=== PATIENT | female | born 1950 | race American Indian/Alaskan Native ===

== ENCOUNTER 2020-01-31 13:50 | Emergency (ER) | payer MEDICARE ==
--- NOTE | 2020-01-31 15:05 | Emergency Department Report ---
HPI - General Chief Complaint: Abdominal Pain Time Seen by Provider: 01/31/20 14:49 - HPI HPI: 69-year-old female presents to the emergency department with a complaint of a 2- day history of lower abdominal pain, worse in the left lower quadrant. She kandy es any fever, nausea, vomiting, dysuria but does say that she has some recent constipation. Her last bowel movement was 2 days ago. Patient is on chronic pain medication including oxycodone and methadone. She says that she has concerned as she has a history of a "intestinal blockage" in the past. She also has a past medical history of arthritis, CHF, COPD, hypertension, PE and seizures. She has a history of previous gastric bypass, hysterectomy and intestinal blockage repair. ED Past Medical Hx - Past Medical History Previous Medical History?: Yes Hx Hypertension: Yes Hx Congestive Heart Failure: Yes Hx Pulmonary Embolism: Yes Hx Arthritis: Yes Hx Seizures: Yes Hx COPD: Yes Additional medical history: BACK FX SCLEROSIS, DDD, Bowel obstruction - Surgical History Past Surgical History?: Yes Additional Surgical History: intestinal blockage repair, gastric bypass, cervial fusion (c3-c4), Hysterectomy - Social History Smoking Status: Former Smoker Substance Use Type: None - Medications Home Medications: Home Medications Medication Instructions Recorded Confirmed Last Taken Type Methylnaltrexone (Nf) [Relistor 12 mg SQ QDAY #10 vial 01/31/20 Unknown Rx (Nf)] Na Biphos/Na Phosp [Fleet] 1 ml NC ONCE PRN #1 bottle 01/31/20 Unknown Rx Oxycodone HCl/Acetaminophen 1 each PO Q8H PRN #8 tablet 01/31/20 Unknown Rx [Percocet 10/325 mg] ED Review of Systems ROS: Stated complaint: ABD PAIN Other details as noted in HPI Comment: All other systems reviewed and negative Constitutional: denies: chills, fever Eyes: denies: eye pain, vision change ENT: denies: ear pain, throat pain Respiratory: denies: cough, shortness of breath Cardiovascular: denies: chest pain, palpitations Gastrointestinal: abdominal pain, constipation. denies: vomiting Genitourinary: denies: dysuria, discharge Musculoskeletal: denies: back pain, arthralgia Skin: denies: rash, lesions Neurological: denies: headache, weakness Physical Exam - Physical Exam Vital Signs: Vital Signs 01/31/20 01/31/20 14:33 14:55 Temperature 98.2 F Pulse Rate 93 H Respiratory 20 Rate Blood Pressure 141/89 O2 Sat by Pulse 98 97 Oximetry Physical Exam: GENERAL: The patient is well-developed well-nourished. HENT: Normocephalic. Atraumatic. Patient has moist mucous membranes. EYES: Extraocular motions are intact. NECK: Supple. Trachea is midline. CHEST/LUNGS: Clear to auscultation. There is no respiratory distress noted. HEART/CARDIOVASCULAR: Regular. There is no tachycardia. There is no murmur. ABDOMEN: Abdomen is soft. There is some generalized abdominal discomfort with lower greater than upper. No guarding. Patient has normal bowel sounds. SKIN: Skin is warm and dry. NEURO: The patient is awake, alert, and oriented. The patient is cooperative. The patient has no focal neurologic deficits. Normal speech. MUSCULOSKELETAL: There is no tenderness or deformity. There is no evidence of acute injury. ED Course Vital Signs 01/31/20 01/31/20 14:33 14:55 Temperature 98.2 F Pulse Rate 93 H Respiratory 20 Rate Blood Pressure 141/89 O2 Sat by Pulse 98 97 Oximetry - Consultations Consultation #1: 01/31/20 19:51 I spoke with the general surgeon on-call, Dr. Joy, regarding the CT findings of chronic ileus. Since the patient does not have any vomiting, any rigid or severely distended abdomen, and since the patient is able to pass some gas recently, he agrees with the plan for discharge and outpatient follow-up. He agrees with the Relistor but also recommends adding MiraLAX. He also recommended 1 dose of a Fleet enema for home. Lastly he recommended the patient be given some GI follow-up as they might be able to provide the patient with a bowel regiment to assist with her chronic constipation. ED Medical Decision Making - Lab Data Result diagrams: 01/31/20 15:18 01/31/20 15:18 - Radiology Data Radiology results: report reviewed ABDOMEN 3 VIEW(S) INDICATION / CLINICAL INFORMATION: Abd pain. COMPARISON: Abdomen from 08/06/2012 FINDINGS: TUBES / LINES: Tubing and leads again project over the midabdomen and left of midline. BOWEL GAS PATTERN: Moderate colonic stool burden is present as well as a few mildly distended nonspecific mid abdominal bowel loops. FREE AIR / EXTRALUMINAL GAS: None seen. ADDITIONAL FINDINGS: No significant additional findings. IMPRESSION: 1. Nonspecific bowel findings as outlined above; however, moderate stool burden is most likely repre sentative of constipation. CT abdomen pelvis wo con INDICATION: lower abd pain, hx of bowel obstruction. TECHNIQUE: All CT scans at this location are performed using CT dose reduction for ALARA by means of automated exposure control. COMPARISON: None available. FINDINGS: Lung bases are clear of acute disease. Postop change in the proximal stomach, with a large hiatal hernia, much of the stomach extending above the diaphragm. Liver, spleen, pancreas, kidneys and adrenals are grossly negative on this noncontrast exam. Abdominal aorta is slightly ectatic. No significant adenopathy. Pelvis There is extensive postop change involving numerous loops of small bowel, as well as at least 2 hernia repairs. There is no evidence of mechanical bowel obstruction; in fact, the rectum is mostly gas-filled and quite distended. No free fluid or obvious inflammatory process. No acute skeletal lesions. IMPRESSION: 1. Extensive postop change in the abdomen, with moderate co angelika and small bowel distention, suggesting chronic ileus. There is no evidence of mechanical bowel obstruction. - Medical Decision Making This patient presents to the emergency department with a complaint of some lower abdominal discomfort and some constipation. On examination she has some tenderness to palpation worst in the lower quadrants but the abdomen is otherwise nondistended, nonrigid and nontoxic in appearance. Labs have been unremarkable including metabolic panel, CBC and urinalysis. Abdominal x-ray showed some increased stool volume and gaseous intestinal distention. For this reason a CT of the abdomen and pelvis was completed that shows some constipation and chronic ileus. I spoke to the general surgeon on-call who agrees with the plan for discharge and outpatient follow-up and his recommendations have been noted. I checked the [facility] prescription monitoring service and the patient does take a lot of chronic pain medications including methadone and Percocet. However she last had a 15-day supply of her oxycodone filled on 01/08 and therefore I do believe she has run out. Since it is Monday and the patient is unlikely to get into her primary care physician's office or establish care with a pain management physician, she has been given a very small dose to be spread out over the weekend for her chronic pains. I have refilled her Relistor to help with her chronic constipation. She has been encouraged to start retaking t he MiraLAX. She has been given a prescription for a single Fleet enema to use. The patient has been instructed to follow-up with her primary care physician on Monday, try and find a pain management physician, and has been given a referral for gastroenterology. The patient will return to the emergency department with any worsening of her symptoms or any acute distress. Towards the patient's disposition, she asked if there was someone she could talk to regarding her mental health. She denied any suicidal or homicidal ideations, nor any hallucinations, but does have some anxiety and depression regarding the of her mother in September of this year. She was seen by the mental health metal hanging supervisor, Mary, who agrees that the patient does not require inpatient involuntary psychiatric admission and outpatient referrals have been given. Critical Care Time: No Critical care attestation.: If time is entered above; I have spent that time in minutes in the direct care of this critically ill patient, excluding procedure time. ED Disposition Clinical Impression: Ileus Abdominal pain Qualifiers: Abdominal location: generalized Qualified Code(s): R10.84 - Generalized abdominal pain Constipation Qualifiers: Constipation type: unspecified constipation type Qualified Code(s): K59.00 - Constipation, unspecified Hypertension Qualifiers: Hypertension type: essential hypertension Qualified Code(s): I10 - Essential (primary) hypertension Disposition: TO HOME OR SELFCARE Is pt being admited?: No Condition: Stable Instructions: Constipation (ED), Abdominal Pain (ED), Hypertension (ED), Ileus (ED) Additional Instructions: Please follow-up with your primary care physician in the next few days. Please make sure to see a pain physician. Return to the emergency department with any worsening of your symptoms or any acute distress. I have prescribed for you a Fleet enema to use at home. You have been prescribed a medication that is sedating and therefore should not be taken prior to driving, working, and responsible for children and in no way should be mixed with alcohol of any quantity. I am giving you a referral for a local guide dog trainer, Dr. Sourav Smart, who is part of [facility]. I feel that you may benefit from seeing gastroenterology regarding your chronic abdominal pains and your chronic constipation. Prescriptions: Na Biphos/Na Phosp [Fleet] 1 ml NC ONCE PRN #1 bottle PRN Reason: Constipation Oxycodone HCl/Acetaminophen [Percocet 10/325 mg] 1 each PO Q8H PRN #8 tablet PRN Reason: Pain Methylnaltrexone (Nf) [Relistor (Nf)] 12 mg SQ QDAY #10 vial Referrals: JANE GREENE MD [Referring] - 2-3 Days MERCY SMART MD [Staff Physician] - 3-5 Days Time of Disposition: 19:04
--- NOTE | 2020-01-31 15:34 | XRay Report ---
ABDOMEN 3 VIEW(S) INDICATION / CLINICAL INFORMATION: Abd pain. COMPARISON: Abdomen from 08/06/2012 FINDINGS: TUBES / LINES: Tubing and leads again project over the midabdomen and left of midline. BOWEL GAS PATTERN: Moderate colonic stool burden is present as well as a few mildly distended nonspec ific mid abdominal bowel loops. FREE AIR / EXTRALUMINAL GAS: None seen. ADDITIONAL FINDINGS: No significant additional findings. IMPRESSION: 1. Nonspecific bowel findings as outlined above; however, moderate stool burden is most likely repres entative of constipation. Signer Name: Jose Ballard MD Signed: 01/31/2020 3:30 PM Workstation Name: [id number]
[2020-01-31 15:39] LABS: Basophils % (Auto) 0.5 % (0.0-1.8); Eosinophils # (Auto) 0.1 K/mm3 (0.0-0.4); Eosinophils % (Auto) 1.4 % (0.0-4.3); Hematocrit 35.7 % (30.3-42.9); Hemoglobin 11.7 gm/dl (10.1-14.3); Lymphocytes # (Auto) 1.7 K/mm3 (1.2-5.4); Lymphocytes % (Auto) 27.5 % (13.4-35.0); Mean Corpuscular HGB Conc 33 % (30-34); Mean Corpuscular Volume 89 fl (79-97); Monocytes # (Auto) 0.4 K/mm3 (0.0-0.8); Monocytes % (Auto) 7.2 % (0.0-7.3); Platelet Count 187 K/mm3 (140-440); Red Cell Distribution Width 14.6 % (13.2-15.2)
[2020-01-31 15:51] LABS: Alanine Aminotransferase 25 units/L (7-56); Albumin 3.3 g/dL (3.9-5); BUN/Creatinine Ratio 17; Blood Urea Nitrogen 12 mg/dL (7-17); Calcium 9.2 mg/dL (8.4-10.2); Hemolysis Index 12
[2020-01-31 15:52] LABS: Bilirubin,Direct < 0.2 mg/dL (0-0.2)
[2020-01-31] MEDS ORDERED: MORPHINE 4 MG/1 ML INJ IV ONE (15:59)
[2020-01-31 16:18] LABS: Bacteria,Urine 1+ /HPF (Negative); Bilirubin,Urine NEG (Negative); Blood,Urine NEG (Negative); Color,Urine Yellow (Yellow); Mucus,Urine FEW /HPF; Protein,Urine <15 mg/dL mg/dL (Negative); Urobilinogen,Urine < 2.0 mg/dL (<2.0)
--- NOTE | 2020-01-31 17:48 | Cat Scan Report ---
CT abdomen pelvis wo con INDICATION: lower abd pain, hx of bowel obstruction. TECHNIQUE: All CT scans at this location are performed using CT dose reduction for ALARA by means of automated e xposure control. COMPARISON: None available. FINDINGS: Lung bases are clear of acute disease. Postop change in the proximal stomach, with a large hiatal her aneta, much of the stomach extending above the diaphragm. Liver, spleen, pancreas, kidneys and adrenals are grossly negative on this noncontrast exam. Abdomina l aorta is slightly ectatic. No significant adenopathy. Pelvis There is extensive postop change involving numerous loops of small bowel, as well as at least 2 herni a repairs. There is no evidence of mechanical bowel obstruction; in fact, the rectum is mostly gas-fi lled and quite distended. No free fluid or obvious inflammatory process. No acute skeletal lesions. IMPRESSION: 1. Extensive postop change in the abdomen, with moderate colon and small bowel distention, suggesting chronic ileus. There is no evidence of mechanical bowel obstruction. Signer Name: Scotty Hale MD Signed: 01/31/2020 5:43 PM Workstation Name: [id number]
[2020-01-31 18:39] VITALS: BP 161/104
== END 2020-01-31 22:06 | disposition home or self-care (01) ==
LOC: ED 13:50
DX: K56.7 Ileus, unspecified (principal); K59.00 Constipation, unspecified; R10.32 Left lower quadrant pain; I11.0 Hypertensive heart disease with heart failure; I50.9 Heart failure, unspecified; R56.9 Unspecified convulsions; J44.9 Chronic obstructive pulmonary disease, unspecified; M19.91 Primary osteoarthritis, unspecified site; Z86.711 Personal history of pulmonary embolism; Z98.890 Other specified postprocedural states; Z90.710 Acquired absence of both cervix and uterus; Z87.891 Personal history of nicotine dependence; Z79.899 Other long term (current) drug therapy; Z88.8 Allergy status to other drugs, medicaments and biological substances
CPT/HCPCS: 36415; 74019; 74176; 80048; 80076; 81001; 85025; 96374; 99285; J2270

== ENCOUNTER 2020-03-09 12:27 | Emergency (ER) | payer MEDICARE ==
--- NOTE | 2020-03-09 14:50 | Emergency Department Report ---
ED Psych HPI - General Chief Complaint: Seizure Stated Complaint: SEIZURE Time Seen by Provider: 03/09/20 14:37 Source: patient Mode of arrival: Stretcher - History of Present Illness Initial Comments: Patient is 70 years old female with history of COPD, congestive heart failure, hypertension and seizure. Patient brought to the emergency room via EMS for evaluation of seizure. Patient stated that she usually have emotional seizures which is partial seizure according to the patient that she take Ativan for it sometimes but she is out of that medicine. Patient added that she went to the behavioral facility across the street because she is depressed and she is suicidal but they asked her to come here. Patient admitted hearing voices. Patient denied homicidal ideation. Patient does have pressured speech and flights of ideas. MD Complaint: suicidal ideation, feels depressed - Related Data Previous Rx's Medication Instructions Recorded Last Taken Type Methylnaltrexone (Nf) [Relistor 12 mg SQ QDAY #10 vial 01/31/20 Unknown Rx (Nf)] Na Biphos/Na Phosp [Fleet] 1 ml DE ONCE PRN #1 bottle 01/31/20 Unknown Rx Ondansetron [Zofran Odt] 4 mg PO Q8HR PRN #20 tab.rapdis 02/12/20 Unknown Rx Oxycodone HCl/Acetaminophen 1 each PO Q8H PRN #12 tablet 02/12/20 Unknown Rx [Percocet 10/325 mg] Allergies Allergy/AdvReac Type Severity Reaction Status Date / Time codeine Allergy Unknown Verified 01/31/20 14:32 Iodinated Contrast Media Allergy Seizure Verified 01/31/20 14:32 nalbuphine [From Nubain] AdvReac Unknown Verified 01/31/20 14:32 NSAIDS (Non-Steroidal AdvReac Unknown Verified 01/31/20 14:32 Anti-Inflamma ED Review of Systems ROS: Stated complaint: SEIZURE Other details as noted in HPI Comment: All other systems reviewed and negative Constitutional: denies: chills, fever Respiratory: denies: cough, shortness of breath, SOB with exertion Cardiovascular: denies: chest pain, palpitations Gastrointestinal: denies: abdominal pain, nausea Musculoskeletal: denies: back pain Neurological: denies: headache, weakness, numbness, paresthesias, confusion ED Past Medical Hx - Past Medical History Hx Hypertension: Yes Hx Congestive Heart Failure: Yes Hx Pulmonary Embolism: Yes Hx Arthritis: Yes Hx Seizures: Yes Hx COPD: Yes Additional medical history: BACK FX SCLEROSIS, DDD, Bowel obstruction, - Surgical History Additional Surgical History: intestinal blockage repair, gastric bypass, cervial fusion (c3-c4), Hysterectomy, esophageal stricture - Social History Smoking Status: Former Smoker Substance Use Type: None - Medications Home Medications: Home Medications Medication Instructions Recorded Confirmed Last Taken Type Methylnaltrexone (Nf) [Relistor 12 mg SQ QDAY #10 vial 01/31/20 Unknown Rx (Nf)] Na Biphos/Na Phosp [Fleet] 1 ml DE ONCE PRN #1 bottle 01/31/20 Unknown Rx Ondansetron [Zofran Odt] 4 mg PO Q8HR PRN #20 tab.rapdis 02/12/20 Unknown Rx Oxycodone HCl/Acetaminophen 1 each PO Q8H PRN #12 tablet 02/12/20 Unknown Rx [Percocet 10/325 mg] ED Physical Exam - General Limitations: Physical Limitation General appearance: alert, in no apparent distress - Head Head exam: Present: atraumatic, normocephalic, normal inspection - Eye Eye exam: Present: normal appearance - ENT ENT exam: Present: normal exam, normal orophraynx, mucous membranes moist - Neck Neck exam: Present: normal inspection - Respiratory Respiratory exam: Present: normal lung sounds bilaterally - Cardiovascular Cardiovascular Exam: Present: regular rate, normal rhythm, normal heart sounds - GI/Abdominal GI/Abdominal exam: Present: soft, normal bowel sounds. Absent: distended, tenderness, guarding, rebound, rigid, organomegaly, mass, bruit, pulsatile mass, hernia - Extremities Exam Extremities exam: Present: normal inspection, full ROM, normal capillary refill - Back Exam Back exam: Present: normal inspection, full ROM. Absent: CVA tenderness (R), CVA tenderness (L) - Neurological Exam Neurological exam: Present: alert, oriented X3, CN II-XII intact - Psychiatric Psychiatric exam: Present: depressed, suicidal ideation - Skin Skin exam: Present: warm, intact, normal color ED Course Vital Signs 03/09/20 03/09/20 03/09/20 14:50 17:16 20:04 Temperature 97.4 F L 98.0 F Pulse Rate 88 86 85 Respiratory 20 18 18 Rate Blood Pressure 131/96 134/98 127/90 [Left] O2 Sat by Pulse 100 100 98 Oximetry 03/10/20 03/10/20 02:47 09:11 Temperature 98.3 F 98.3 F Pulse Rate 91 H 98 H Respiratory 16 17 Rate Blood Pressure 131/96 126/90 [Left] O2 Sat by Pulse 98 100 Oximetry ED Medical Decision Making - Lab Data Result diagrams: 03/09/20 15:02 03/09/20 15:02 - Medical Decision Making Patient is 70 years old female with history of COPD, congestive heart failure, hypertension and seizure. Patient brought to the emergency room via EMS for evaluation of seizure. Patient stated that she usually have emotional seizures which is partial seizure according to the patient that she take Ativan for it sometimes but she is out of that medicine. Patient added that she went to the behavioral facility across the street because she is depressed and she is suicidal but they asked her to come here. Patient admitted hearing voices. Patient denied homicidal ideation. Patient does have pressured speech and flights of ideas. Labs reviewed and is unremarkable. No seizure activity observed. Patient is medically cleared to be evaluated by psychiatric team. Patient has been evaluated by our psychiatric team and advised to discharge the patient to follow-up as an outpatient. Patient is currently denying any suicidal homicidal ideation. No visual or auditory hallucination. Patient is complaining of chronic pain she stated that she is taking oxycodone. I will prescribe tramadol and Zofran and Imodium for diarrhea and advised to follow-up with her primary care physician and her pain medicine doctor for oxycodone refill. Patient given resources for outpatient follow-up by our psychiatric team. Patient is medically and psychiatrically stable for discharge. Critical care attestation.: If time is entered above; I have spent that time in minutes in the direct care of this critically ill patient, excluding procedure time. ED Disposition Clinical Impression: Suicidal ideation, Acute psychosis, Chronic pain, Chronic diarrhea Disposition: - TO HOME OR SELFCARE Is pt being admited?: No Condition: Stable Instructions: Suicide Prevention for Adults (ED), Chronic Diarrhea (ED) Additional Instructions: The PT will be referred to the following: Professional and Agency Contacts To help Res[facility] Crises(27/03) [place] Crisis Line: Suicide Prevention Line: Crisis Text Line: Text START to [phone] Emergency: 911 Mental Health providers: Kenny Gunderson MD: [address] [facility] [address]: [address] Brian Lynch [address] [place] [id number] Pain Management: Dr. Pritesh Reardon, DO Show Design Supervisor [address] [place] [address] Chasity Rodriguez, MSN, BARREL STAVE INSPECTOR Nurse Practitioner [address], [address] [place] [address] Referrals: JANE GREENE MD [Primary Care Provider] - 3-5 Days
[2020-03-09 15:34] LABS: Basophils % (Auto) 0.5 % (0.0-1.8); Eosinophils # (Auto) 0.1 K/mm3 (0.0-0.4); Eosinophils % (Auto) 1.8 % (0.0-4.3); Hematocrit 38.1 % (30.3-42.9); Hemoglobin 12.4 gm/dl (10.1-14.3); Lymphocytes # (Auto) 1.7 K/mm3 (1.2-5.4); Mean Corpuscular HGB Conc 32 % (30-34); Mean Corpuscular Volume 89 fl (79-97); Monocytes # (Auto) 0.4 K/mm3 (0.0-0.8); Monocytes % (Auto) 6.6 % (0.0-7.3); Platelet Count 179 K/mm3 (140-440); Red Blood Count 4.28 M/mm3 (3.65-5.03); Red Cell Distribution Width 14.8 % (13.2-15.2)
[2020-03-09 15:43] LABS: Bilirubin,Urine NEG (Negative); Blood,Urine NEG (Negative); Color,Urine Yellow (Yellow); Mucus,Urine FEW /HPF; Protein,Urine <15 mg/dL mg/dL (Negative); Urobilinogen,Urine < 2.0 mg/dL (<2.0)
[2020-03-09 15:54] LABS: BUN/Creatinine Ratio 16; Blood Urea Nitrogen 14 mg/dL (7-17); Calcium 9.7 mg/dL (8.4-10.2); Hemolysis Index 6
[2020-03-09 16:26] LABS: Amphetamine Screen,Urine Negative; Benzodiazepines Screen,Urine Negative; Cannabinoid Screen,Urine Negative; Cocaine Screen,Urine Negative; Methadone Screen,Urine Negative
[2020-03-09 16:46] LABS: Opiate Screen,Urine Positive
[2020-03-09] MEDS ORDERED: ACETAMINOPHEN 325 MG TAB PO ONE (17:42)
--- NOTE | 2020-03-09 21:26 | Cat Scan Report ---
NONENHANCED CT SCAN OF THE HEAD: INDICATION / CLINICAL INFORMATION: 70 years Female; fall. TECHNIQUE: Routine CT head without contrast. All CT scans at this location are performed using CT dos e reduction for ALARA by means of automated exposure control. COMPARISON: CT scan of the head from 01/01/2013 FINDINGS: BRAIN / INTRACRANIAL CONTENTS: No intracranial sequela from the trauma; no scalp hematoma; no air-flu id level in the visualized portions of the paranasal sinuses. No acute hemorrhage, mass effect, midline shift, hydrocephalus, or acute, large territorial infarct. No chronic infarct or focal atrophy. Normal brain volume and ventricular/sulcal size for age. No sig nificant white matter abnormality. CRANIOCERVICAL JUNCTION: No significant abnormality. ORBITS: No significant abnormality of visualized orbits. SINUSES / MASTOIDS: No significant abnormality of the visualized paranasal sinuses or mastoid air gt ls. ADDITIONAL FINDINGS: Empty sella IMPRESSION: No intracranial sequela from the trauma No acute parenchymal lesion in the brain Signer Name: Regine Cruz MD Signed: 03/09/2020 9:22 PM Workstation Name: [id number]
[2020-03-10] MEDS ORDERED: ACETAMINOPHEN 325 MG TAB PO ONE (08:10)
[2020-03-10 09:12] VITALS: BP 126/90
[2020-03-10] MEDS: KETOROLAC 60 MG/2 ML INJ IM ONE ×2 (12:04→12:07)
[2020-03-10] MEDS ORDERED: traMADol 50 MG TAB ONE (13:53)
[2020-03-10] MEDS ORDERED: traMADol 50 MG TAB PO ONE (13:54)
== END 2020-03-10 15:33 | disposition home or self-care (01) ==
LOC: EEVIPCON 12:27 → ED 12:27
DX: R45.851 Suicidal ideations (principal); F23 Brief psychotic disorder; K52.9 Noninfective gastroenteritis and colitis, unspecified; I11.0 Hypertensive heart disease with heart failure; I50.9 Heart failure, unspecified; M19.91 Primary osteoarthritis, unspecified site; J44.9 Chronic obstructive pulmonary disease, unspecified; Z98.890 Other specified postprocedural states; Z87.891 Personal history of nicotine dependence; Z79.899 Other long term (current) drug therapy; Z88.8 Allergy status to other drugs, medicaments and biological substances
CPT/HCPCS: 36415; 70450; 80048; 80307; 80320; 81001; 85025; G0480; J1885

== ENCOUNTER 2020-08-27 19:49 | Emergency (ER) | payer MEDICARE | END 2020-08-28 06:40 | disposition left against medical advice (07) | LOC: ED 19:49 | DX: R51.9 Headache, unspecified (principal); Z53.21 Procedure and treatment not carried out due to patient leaving prior to being seen by health care provider ==